=== PATIENT | male | born 1955 ===

== ENCOUNTER → 2017-08-08 | Outpatient (CLI) | payer BC ==
[~2017-08-08] MED LIST: ALBU90I INH; ASPI325 PO; ATOR40TA; ATOR40TA PO; BENZ100A PO; CLOP75 PO; FLUC150A PO; FLUO20 PO; GUAI600T33 PO; HYDACE5 PO; NIFE30ER PO; NITR.4SL SL; NYST100P TOP; PRED20 PO; PROP120ER PO; SILD50TA PO; TRAZ50 PO
== END | disposition home or self-care (01) ==
LOC: LAB SHORT 11:45 → PLD 11:45
DX: C44.311 Basal cell carcinoma of skin of nose (principal)
CPT/HCPCS: 88305